=== PATIENT | female | born 1965 | race Caucasian/White ===

== ENCOUNTER → 2017-03-28 06:00 | Emergency (ER) | payer OTHER ==
[~2017-03-28 06:00] MED LIST: clonazePAM TAB(*) 0.5 MG ONE; clonazePAM TAB(*) 1 MG PO ONE
[2017-03-28 08:04] VITALS: BP 112/74
--- NOTE | 2017-03-28 08:25 | ED ---
Crescencio George Thomas, scribed for Ankush Page MD on 03/28/17 at 0721 . Psychiatric Complaint - HPI Summary HPI Summary: The pt is a 51 y/o F presenting to the ED c/o withdrawal symptoms that began two days ago and seeking extended-release Klonopin in order to avoid withdrawal. She was on Ativan 6mg for years and she has been trying to get off of it for the last 8-9 months. She is now on Effexor, which she says has improved her mental health considerably. Yesterday, she took Klonopin 2mg extended release, which improved her symptoms. She is seeking temporary relief from her withdrawal symptoms. She is following up with Dr. Coto and her next scheduled appointment is in a month. She is tearful in the examination room. Pt additionally c/o diarrhea, shakiness, chills, insomnia, elevated BP (to 150s/ 110s). Pt denies SI, CP, SOB, N/V. She is 27 years in recovery from alcoholism. - History Of Current Complaint Chief Complaint: EDGeneral Time Seen by Provider: 03/28/17 07:09 Hx Obtained From: Patient Hx Last Menstrual Period: 02/04/14 Onset/Duration: Lasting Days - withdrawal symptoms began two days ago, Still Present Timing: Constant Severity Currently: Moderate Character: Anxious Aggravating Factor(s): Nothing Alleviating Factor(s): Other - extended release Klonopin Associated Signs And Symptoms: Positive: Negative Related History: Positive For: Drug Abuse Counseling Has Suicidal: Denies: Thoughts Ingestion History: Type/Name Of Drug - Hx of Benzodiazepine abuse - Allergies/Home Medications Allergies/Adverse Reactions: Allergies Allergy/AdvReac Type Severity Reaction Status Date / Time No Known Allergies Allergy Verified 03/28/17 06:07 PMH/Surg Hx/FS Hx/Imm Hx Previously Healthy: No Endocrine/Hematology History: Reports: Hx Thyroid Disease - recent labs reveal hypothyroid - no medications as of yet Denies: Hx Anticoagulant Therapy, Hx Blood Disorders, Hx Diabetes Cardiovascular History: Denies: Hx Hypertension, Hx Pacemaker/ICD Respiratory History: Denies: Hx Asthma, Hx Chronic Obstructive Pulmonary Disease (COPD) GI History: Denies: Hx Ulcer Sensory History: Denies: Hx Hearing Aid Psychiatric History: Reports: Hx Anxiety Denies: Hx Panic Disorder - Surgical History Surgery Procedure, Year, and Place: d+c jul,cauterization september, d+c february ( polyps) bx benign. tonsils and appy as child, UFE PROCEDURE IN [place] [address] COBB Infectious Disease History: No Infectious Disease History: Denies: Hx Clostridium Difficile, Hx Hepatitis, Hx Human Immunodeficiency Virus (HIV), Hx of Known/Suspected MRSA, Hx Shingles, Hx Tuberculosis, Traveled Outside the [place] in Last 30 Days - Family History Known Family History: Positive: Other - thyroid dz, menorrhagia requiring TAWANDA - Social History Alcohol Use: None Alcohol Amount: alcoholism 27 yeras in recovery Hx Substance Use: Yes Substance Use Type: Reports: Prescribed Substance Use Comment - Amount & Last Used: ativan Hx Tobacco Use: No Smoking Status (MU): Never Smoked Tobacco Review of Systems Positive: Chills. Negative: Fever Positive: Other - POS: elevated BP. Negative: Chest Pain Negative: Shortness Of Breath Positive: Diarrhea. Negative: Vomiting, Nausea Neurological: Other - POS: withdrawal symptoms, shakiness, insomnia Negative: Other - NEG: SI All Other Systems Reviewed And Are Negative: Yes Physical Exam - Summary Physical Exam Summary: The patient is well-nourished in no acute distress and in no acute pain. The skin is warm and dry and skin color reflects adequate perfusion. HEENT: ~The head is normocephalic and atraumatic. The pupils are equal and reactive. The conjunctivae are clear and without drainage. ~Nares are patent and without drainage. ~Mouth reveals moist mucous membranes and the throat is without erythema and exudate. ~The external ears are intact. Neck is supple with full range of motion and non-tender. There are no carotid bruits. ~There is no neck vein distension. Respiratory: Chest is non-tender. ~Lungs are clear to auscultation and breath sounds are symmetrical and equal. Cardiovascular: Heart is regular rate and rhythm. ~There is no murmur or rub auscultated. ~~There is no peripheral edema and pulses are symmetrical and equal. Abdomen: The abdomen is soft and non-tender. ~There are normal bowel sounds heard in all four quadrants and there is no organomegaly palpated. Musculoskeletal: There is no back pain noted. ~Extremities are non-tender with full range of motion. ~There is good capillary refill. ~There is no peripheral edema or calf tenderness elicited. Neurological: Patient is alert and oriented to person, place and time. ~The patient has symmetrical motor strength in all four extremities. ~Cranial nerves are grossly intact. Deep tendon reflexes are symmetrical and equal in all four extremities. Psychiatric: She is tearful and anxious in the examination room. Triage Information Reviewed: Yes Vital Signs On Initial Exam: Initial Vitals Temp Pulse Resp BP Pulse Ox 98.2 F 70 22 147/98 98 03/28/17 06:02 03/28/17 06:02 03/28/17 06:02 03/28/17 06:02 03/28/17 06:02 Vital Signs Reviewed: Yes - [place] Coma Scale Coma Scale Total: 15 Diagnostics - Vital Signs Vital Signs Temp Pulse Resp BP Pulse Ox 03/28/17 06:35 52 99 03/28/17 06:32 113/72 03/28/17 06:05 98.2 F 68 20 147/98 98 03/28/17 06:02 98.2 F 70 22 147/98 98 - Laboratory Lab Statement: Any lab studies that have been ordered have been reviewed, and results considered in the medical decision making process. Course/Dx - Course Assessment/Plan: The pt is a 51 y/o F presenting to the ED c/o withdrawal symptoms that began two days ago and seeking extended-release Klonopin in order to avoid withdrawal. She was on Ativan 6mg for years and she has been trying to get off of it for the last 8-9 months. She is now on Effexor, which she says has improved her mental health considerably. Yesterday, she took Klonopin 2mg extended release, which improved her symptoms. She is seeking temporary relief from her withdrawal symptoms. She is following up with Dr. Coto and her next scheduled appointment is in a month. She is tearful in the examination room. Pt additionally c/o diarrhea, shakiness, chills, insomnia, elevated BP (to 150s/110s). Pt denies SI, CP, SOB, N/V. She is 27 years in recovery from alcoholism. The patient was given 2mg of Klonopin in the ED. She is diagnosed with benzodiazepine withdrawal and anxiety. She will be discharged home. She was instructed to call Dr. Coto for further instructions. Patient is agreeable to this plan. - Differential Dx/Clinical Impression Differential Diagnosis/HQI/PQRI: Positive: Anxiety, Depression Provider Diagnosis: Benzodiazepine withdrawal, Anxiety Discharge - Discharge Plan Condition: Stable Disposition: HOME Patient Education Materials: Benzodiazepine Abuse (ED), Anxiety (ED) Referrals: Gerhard Lyons MD [Primary Care Provider] - If Needed Nnamdi JUNIOR,Jesse Brower [Medical Doctor] - 1 Day Additional Instructions: Follow up with Dr. Coto regarding your treatment plan going forward. The documentation as recorded by the Crescencio silva Thomas accurately reflects the service I personally performed and the decisions made by , Ankush Page MD.
== END | disposition home or self-care (01) ==
LOC: ED 06:00
DX: F13.20 Sedative, hypnotic or anxiolytic dependence, uncomplicated (principal); R19.7 Diarrhea, unspecified
CPT/HCPCS: 99282; A9270-GY

== ENCOUNTER 2017-04-24 17:05 | Emergency (ER) | payer OTHER ==
[2017-04-24 18:09] VITALS: BP 146/86
== END 2017-04-24 19:26 | disposition left against medical advice (07) ==
LOC: ED 17:05
DX: R06.00 Dyspnea, unspecified (principal); Z53.21 Procedure and treatment not carried out due to patient leaving prior to being seen by health care provider

== ENCOUNTER 2017-09-22 11:47 | Emergency (ER) | payer OTHER ==
[2017-09-22] MEDS ORDERED: Metoclopramide IV* 5 MG/ML 2 ML VIAL IV ONE (12:14)
[2017-09-22 13:01] LABS: ABS Basophils 0.1 10^3/ul (0-0.2); ABS Eosinophils 0 10^3/ul (0-0.6); ABS Lymphocytes 2.1 10^3/ul (1.0-4.8); ABS Monocytes 0.5 10^3/ul (0-0.8); ABS Neutrophils 9.9 10^3/ul (1.5-7.7); ABS Nucleated RBC 0 10^3/ul; Eosinophil % 0.1 % (0-6); Hematocrit 46 % (35-47); Hemoglobin 15.5 g/dl (12.0-16.0); Lymphocyte % 16.3 % (25-47); Mean Corpuscular HGB Conc 34 g/dl (31-36); Mean Corpuscular Hemoglobin 27 pg (27-31); Mean Corpuscular Volume 79 fL (80-97); Mean Platelet Volume 8 um3 (7.4-10.4); Nucleated Red Blood Cells % 0.2; Platelet Count 333 10^3/ul (150-450); Red Blood Count 5.79 10^6/ul (4.0-5.4); Red Cell Distribution Width 14 % (10.5-15); White Blood Count 12.6 10^3/ul (3.5-10.8)
[2017-09-22] MEDS: NS 0.9% 1000 ML* 2,000 ML IV ONE ×2 (13:24→13:25)
--- NOTE | 2017-09-22 13:41 | RAD ---
Indication: Nausea and vomiting. Flat and upright views of the abdomen demonstrates no free air. No dilated loops of bowel are noted. The colon is filled with stool. IMPRESSION: No free air or obstruction is identified.
[2017-09-22 15:05] LABS: Urine Appearance Clear; Urine Blood 2+ (Negative); Urine Color Straw; Urine Ketones Trace (Negative); Urine Protein Negative (Negative); Urine Specific Gravity 1.002 (1.010-1.030); Urine Urobilinogen Negative (Negative)
[2017-09-22 15:39] VITALS: BP 144/100
--- NOTE | 2017-09-22 17:39 | ED ---
Dane George Nilda, scribed for César Camp MD on 09/22/17 at 1204 . Complex/Multi-Sys Presentation - HPI Summary HPI Summary: This patient is a 51 year old F presenting to [facility] accompanied by family with a chief complaint of constant withdrawal symptoms from being off Ativan for 2-3 days. The patient rates the pain 0/10 in severity. Symptoms aggravated by recent stressor (current legal hemphill in filing for malpractice regarding trauma due to Ativan dependence) and alleviated by nothing. Patient reports chills, N/V with spotting blood, tremors, dizziness (room-spinning), and feeling flushed. Patient states she has been on Ativan for the past 4 years and has been trying to get off the medication for years. She states she ran out of Ativan prescription 2-3 days ago and threw away the bottle so she is unsure when prescription was supposed to be refilled. - History Of Current Complaint Time Seen by Provider: 09/22/17 11:54 Hx Obtained From: Patient Onset/Duration: Sudden Onset, Lasting Days, Still Present Timing: Constant Location: Negative Aggravating Factor(s): recent stress, no Ativan for 2-3 days Alleviating Factor(s): nothing Associated Signs And Symptoms: Positive: Other - chills, N/V with spotting blood , tremors, dizziness (room-spinning), and feeling flushed. Related History: Other - ran out of Ativan 2-3 days ago, Hx Ativan dependence 4 years. - Allergies/Home Medications Allergies/Adverse Reactions: Allergies Allergy/AdvReac Type Severity Reaction Status Date / Time No Known Allergies Allergy Verified 09/22/17 12:11 PMH/Surg Hx/FS Hx/Imm Hx Endocrine/Hematology History: Reports: Hx Thyroid Disease - recent labs reveal hypothyroid - no medications as of yet Denies: Hx Anticoagulant Therapy, Hx Blood Disorders, Hx Diabetes Cardiovascular History: Denies: Hx Hypertension, Hx Pacemaker/ICD Respiratory History: Denies: Hx Asthma, Hx Chronic Obstructive Pulmonary Disease (COPD) GI History: Denies: Hx Ulcer Sensory History: Denies: Hx Hearing Aid Psychiatric History: Reports: Hx Anxiety Denies: Hx Panic Disorder - Surgical History Surgery Procedure, Year, and Place: d+c jul,cauterization september, d+c february ( polyps) bx benign. tonsils and appy as child, UFE PROCEDURE IN [place] [address] COBB Infectious Disease History: Denies: Hx Clostridium Difficile, Hx Hepatitis, Hx Human Immunodeficiency Virus (HIV), Hx of Known/Suspected MRSA, Hx Shingles, Hx Tuberculosis - Family History Known Family History: Positive: Other - thyroid dz, menorrhagia requiring TAWANDA - Social History Alcohol Use: None Alcohol Amount: alcoholism 27 yeras in recovery Hx Substance Use: Yes Substance Use Type: Reports: Prescribed Substance Use Comment - Amount & Last Used: ativan Hx Tobacco Use: No Smoking Status (MU): Never Smoked Tobacco Review of Systems Positive: Chills, Other - tremors (resolved) Positive: Vomiting - with spotting blood, Nausea Positive: Other - feeling flushed Neurological: Other - dizziness (room-spinning) Positive: Anxious - withdrawal symptoms from Ativan and recent stressors. All Other Systems Reviewed And Are Negative: Yes Physical Exam - Summary Physical Exam Summary: VITAL SIGNS: Reviewed. GENERAL: Patient is a well-developed and nourished female who is lying comfortable in the stretcher. Patient is not in any acute respiratory distress. HEAD AND FACE: No signs of trauma. No ecchymosis, hematomas or skull depressions. No sinus tenderness. EYES: PERRLA, EOMI x 2, No injected conjunctiva, no nystagmus. EARS: Hearing grossly intact. Ear canals and tympanic membranes are within normal limits. MOUTH: Oropharynx within normal limits. NECK: Supple, trachea is midline, no adenopathy, no JVD, no carotid bruit, no c- spine tenderness, neck with full ROM. CHEST: Symmetric, no tenderness at palpation LUNGS: Clear to auscultation bilaterally. No wheezing or crackles. CVS: Regular rate and rhythm, S1 and S2 present, no murmurs or gallops appreciated. ABDOMEN: Soft, non-tender. No signs of distention. No rebound no guarding, and no masses palpated. Bowel sounds are normal. EXTREMITIES: FROM in all major joints, no edema, no cyanosis or clubbing. NEURO: Alert and oriented x 3. No acute neurological deficits. Speech is normal and follows commands. SKIN: Dry and warm Triage Information Reviewed: Yes Vital Signs On Initial Exam: Initial Vitals Temp Pulse Resp BP Pulse Ox 98.1 F 74 16 168/79 100 09/22/17 11:58 09/22/17 11:58 09/22/17 11:58 09/22/17 11:58 09/22/17 11:58 Vital Signs Reviewed: Yes Diagnostics - Vital Signs Vital Signs Temp Pulse Resp BP Pulse Ox 09/22/17 15:40 97.9 F 65 16 144/100 98 09/22/17 15:35 60 99 09/22/17 15:33 144/100 09/22/17 14:46 28 09/22/17 14:33 145/131 09/22/17 14:30 54 98 09/22/17 14:00 57 26 136/69 96 09/22/17 13:30 62 23 124/82 98 09/22/17 13:08 23 09/22/17 12:29 59 15 100 09/22/17 12:11 78 168/79 99 09/22/17 12:09 81 160/136 99 09/22/17 12:04 72 99 09/22/17 11:58 98.1 F 74 16 168/79 100 - Laboratory Lab Results: Lab Results 09/22/17 09/22/17 09/22/17 Range/Units 12:46 12:46 14:26 WBC 12.6 H (3.5-10.8) 10^3/ul RBC 5.79 H (4.0-5.4) 10^6/ul Hgb 15.5 (12.0-16.0) g/dl Hct 46 (35-47) % MCV 79 L (80-97) fL MCH 27 (27-31) pg MCHC 34 (31-36) g/dl RDW 14 (10.5-15) % Plt Count 333 (150-450) 10^3/ul MPV 8 (7.4-10.4) um3 Neut % (Auto) 78.6 (38-83) % Lymph % (Auto) 16.3 L (25-47) % [place] % (Auto) 4.3 (0-7) % Eos % (Auto) 0.1 (0-6) % Baso % (Auto) 0.7 (0-2) % Absolute Neuts (auto) 9.9 H (1.5-7.7) 10^3/ul Absolute Lymphs (auto) 2.1 (1.0-4.8) 10^3/ul Absolute Monos (auto) 0.5 (0-0.8) 10^3/ul Absolute Eos (auto) 0 (0-0.6) 10^3/ul Absolute Basos (auto) 0.1 (0-0.2) 10^3/ul Absolute Nucleated RBC 0 10^3/ul Nucleated RBC % 0.2 Sodium 132 L (133-145) mmol/L Potassium 3.6 (3.5-5.0) mmol/L Chloride 98 L (101-111) mmol/L Carbon Dioxide 25 (22-32) mmol/L Anion Gap 9 (2-11) mmol/L BUN 10 (6-24) mg/dL Creatinine 0.54 (0.51-0.95) mg/dL Est GFR ( Amer) 154.3 (>60) Est GFR (Non-Af Amer) 120.0 (>60) BUN/Creatinine Ratio 18.5 (8-20) Glucose 120 H (70-100) mg/dL Calcium 10.2 (8.6-10.3) mg/dL Magnesium 1.9 (1.9-2.7) mg/dL Total Bilirubin 0.60 (0.2-1.0) mg/dL AST 16 (13-39) U/L ALT 19 (7-52) U/L Alkaline Phosphatase 104 (34-104) U/L Total Creatine Kinase 63 (10-223) U/L C-Reactive Protein 20.52 H (< 5.00) mg/L Total Protein 7.8 (6.4-8.9) g/dL Albumin 4.3 (3.2-5.2) g/dL Globulin 3.5 (2-4) g/dL Albumin/Globulin Ratio 1.2 (1-3) Lipase 20 (11.0-82.0) U/L Urine Color Straw Urine Appearance Clear Urine pH 6.0 (5-9) Ur Specific [place] 1.002 L (1.010-1.030) Urine Protein Negative (Negative) Urine Ketones Trace A (Negative) Urine Blood 2+ A (Negative) Urine Nitrate Negative (Negative) Urine Bilirubin Negative (Negative) Urine Urobilinogen Negative (Negative) Ur Leukocyte Esterase Negative (Negative) Urine WBC (Auto) Trace(0-5/hpf) (Absent) Urine RBC (Auto) Trace(0-2/hpf) (Absent) Ur Squamous Epith Cells Present A (Absent) Urine Bacteria Absent (Absent) Urine Glucose Negative (Negative) Result Diagrams: 09/22/17 12:46 09/22/17 12:46 Lab Statement: Any lab studies that have been ordered have been reviewed, and results considered in the medical decision making process. - EKG 1235 Cardiac Rate: Bradycardia EKG Rhythm: Sinus Bradycardia - 55 bpm EKG Interpretation: no ST elevation EKG Comparison: No Significant Change - from EKG on 02/07/17. Re-Evaluation - Re-Evaluation First Eval Re-Evaluation Time: 14:58 Comment: Reviewed labs and EKG with patient as well as plan to D/C. Patient feels better. She's agreeable to D/C. Complex Multi-Symp Course/Dx Assessment/Plan: This patient is a 51 year old F presenting to [facility] accompanied by family with a chief complaint of constant withdrawal symptoms from being off Ativan for 2-3 days. The patient rates the pain 0/10 in severity. Symptoms aggravated by recent stressor (current legal hemphill in filing for malpractice regarding trauma due to Ativan dependence) and alleviated by nothing. Patient reports chills, N/V with spotting blood, tremors , dizziness (room-spinning), and feeling flushed. Patient states she has been on Ativan for the past 4 years and has been trying to get off the medication for years. She states she ran out of Ativan prescription 2-3 days ago and threw away the bottle so she is unsure when prescription was supposed to be refilled. In the ED course an IV access was obtained. Patient was placed in a cardiac rehabilitation program director. Patient was started with IV fluids. She was given Reglan for nausea and vomiting. Labs without any significant abnormality except for WBC 12.6, CRP 20.52, UA negative for UTI. EKG shows a NSR w/o ST elevations. Abdominal X ray impression: No acute pathology. After medications she is feeling better. I gave a prescription for Ativan 0.5 (6 tabs) until she follows with Dr. Clark (psychiatry). I discussed all the findings and test results with the patient. Patient was instructed to return to the emergency room immediately if any of the symptoms return or worsens. Plan of care was discussed with the patient and understands and agrees. All questions were answered at patient satisfaction. There were no further complaints or concerns. Lung exam before discharge: CTA B/L. Good air exchange. No wheezing or crackles heard. CVS: S1 and S2 present. No murmurs appreciated. Patient is alert and oriented x 3. Patient is hemodynamically stable. Patient will be discharged home with follow up PCP in the next 2-3 days - Diagnoses Provider Diagnoses: Anxiety, Benzodiazepine abuse Discharge - Discharge Plan Condition: Stable Disposition: HOME Prescriptions: LORazepam TAB(*) [Ativan 0.5 MG TAB (*)] 0.5 mg PO Q8H PRN #6 tab MDD 3 PRN Reason: Anxiety Patient Education Materials: Anxiety (ED) Referrals: Gerhard Lyons MD [Primary Care Provider] - 3 Days Additional Instructions: RETURN TO THE EMERGENCY DEPARTMENT FOR CHANGING OR WORSENING SYMPTOMS. The documentation as recorded by the Dane silva Nilda accurately reflects the service I personally performed and the decisions made by , César Camp MD.
--- NOTE | 2017-09-24 09:00 | PN ---
Progress Note - Progress Note Date of Service: 09/22/17 Note: 10-25,000 of e.coli grew on urine culture. had clear urinalysis and no symptoms. no treatment is required at this time due to insignificant amount of growth.
== END 2017-09-22 15:40 | disposition home or self-care (01) ==
LOC: ED 11:47
DX: F41.9 Anxiety disorder, unspecified (principal)
CPT/HCPCS: 36415; 74019; 80053; 81003; 81015; 82550; 83690; 83735; 85025; 86140; 87077; 87086; 87186; 93005; 96360; 96374; 99284; J2765

== ENCOUNTER 2018-01-23 16:57 | Emergency (ER) | payer OTHER ==
[2018-01-23] MEDS ORDERED: NS 0.9% 1000 ML* 2,000 ML IV ONE (17:53)
[2018-01-23 18:12] LABS: ABS Basophils 0.1 10^3/ul (0-0.2); ABS Eosinophils 0 10^3/ul (0-0.6); ABS Lymphocytes 2.3 10^3/ul (1.0-4.8); ABS Monocytes 0.8 10^3/ul (0-0.8); ABS Neutrophils 11.3 10^3/ul (1.5-7.7); ABS Nucleated RBC 0 10^3/ul; Eosinophil % 0.3 % (0-6); Hematocrit 42 % (35-47); Lymphocyte % 15.6 % (25-47); Mean Corpuscular HGB Conc 34 g/dl (31-36); Mean Corpuscular Hemoglobin 26 pg (27-31); Mean Corpuscular Volume 78 fL (80-97); Mean Platelet Volume 7.4 um3 (7.4-10.4); Nucleated Red Blood Cells % 0.1; Platelet Count 370 10^3/ul (150-450); Red Blood Count 5.34 10^6/ul (4.00-5.40); Red Cell Distribution Width 15 % (10.5-15); White Blood Count 14.5 10^3/ul (3.5-10.8)
[2018-01-23 18:20] LABS: INR 1.06 (0.77-1.02)
--- NOTE | 2018-01-23 18:22 | ED ---
Psychiatric Complaint - HPI Summary HPI Summary: This is romanibsam Garcia documenting for attending Shadi Jackson MD. This patient is a 52 year old F BLS by [facility] accompanied by a male with a chief complaint of withdrawal from Ativan that she stopped taking 9 days ago. Pt was previously taking 2mg of Ativan 3 times a day, but she decided to stop with the support of her friends. Patient reports involuntary twitching/ jerking, inability to feel her body, and memory loss. PMHx of depression and SI. FHx of alcoholism. Pt is worried she will have a seizure. Pt mentioned at the end of the conversation that she couldnt remember anything she said to Dr. Jackson. - History Of Current Complaint Chief Complaint: EDGeneral Time Seen by Provider: 01/23/18 17:42 Hx Obtained From: Patient Hx Last Menstrual Period: 02/04/14 Onset/Duration: Sudden Onset, Lasting Days - 9 days Timing: Constant Severity Initially: Moderate Severity Currently: Moderate Character: Anxious Associated Signs And Symptoms: Negative: Hostile - Allergies/Home Medications Allergies/Adverse Reactions: Allergies Allergy/AdvReac Type Severity Reaction Status Date / Time No Known Allergies Allergy Verified 09/22/17 12:11 PMH/Surg Hx/FS Hx/Imm Hx Endocrine/Hematology History: Reports: Hx Thyroid Disease - recent labs reveal hypothyroid - no medications as of yet Denies: Hx Anticoagulant Therapy, Hx Blood Disorders, Hx Diabetes Cardiovascular History: Denies: Hx Hypertension, Hx Pacemaker/ICD Respiratory History: Denies: Hx Asthma, Hx Chronic Obstructive Pulmonary Disease (COPD) GI History: Denies: Hx Ulcer Sensory History: Denies: Hx Hearing Aid EENT History: Denies: Hx Deafness Psychiatric History: Reports: Hx Anxiety Denies: Hx Panic Disorder - Surgical History Surgery Procedure, Year, and Place: d+c jul,cauterization september, d+c february ( polyps) bx benign. tonsils and appy as child, UFE PROCEDURE IN [place] [address] COBB Infectious Disease History: No Infectious Disease History: Denies: Hx Clostridium Difficile, Hx Hepatitis, Hx Human Immunodeficiency Virus (HIV), Hx of Known/Suspected MRSA, Hx Shingles, Hx Tuberculosis, Traveled Outside the [place] in Last 30 Days - Family History Known Family History: Positive: Other - thyroid dz, menorrhagia requiring TAWANDA - Social History Alcohol Use: None Alcohol Amount: alcoholism 27 yeras in recovery Hx Substance Use: Yes Substance Use Type: Reports: Prescribed Substance Use Comment - Amount & Last Used: ativan Hx Tobacco Use: No Smoking Status (MU): Never Smoked Tobacco Review of Systems Positive: Other Neurological: Other - short term memory loss, twitching Positive: Numbness - "can't feel my body" Positive: Anxious All Other Systems Reviewed And Are Negative: Yes Physical Exam - Summary Physical Exam Summary: General: well-appearing, no pain distress. Anxious. Skin: warm, color reflects adequate perfusion, dry Head: normal Eyes: EOMI, RENU ENT: normal Neck: supple, nontender Respiratory: CTA, breath sounds present Cardiovascular: RRR Abdomen: soft, nontender Bowel: present Musculoskeletal: normal, strength/ROM intact Neurological: sensory/motor intact, A&O x3 Psychological: affect/mood appropriate Triage Information Reviewed: Yes Vital Signs On Initial Exam: Initial Vitals Temp Pulse Resp BP Pulse Ox 97.6 F 90 16 159/80 99 01/23/18 17:00 01/23/18 17:00 01/23/18 17:00 01/23/18 17:00 01/23/18 17:00 Vital Signs Reviewed: Yes Diagnostics - Vital Signs Vital Signs Temp Pulse Resp BP Pulse Ox 01/23/18 17:00 97.6 F 90 16 159/80 99 - Laboratory Lab Results: Lab Results 01/23/18 Range/Units 18:01 WBC 14.5 H (3.5-10.8) 10^3/ul RBC 5.34 (4.00-5.40) 10^6/ul Hgb 14.0 (12.0-16.0) g/dl Hct 42 (35-47) % MCV 78 L (80-97) fL MCH 26 L (27-31) pg MCHC 34 (31-36) g/dl RDW 15 (10.5-15) % Plt Count 370 (150-450) 10^3/ul MPV 7.4 (7.4-10.4) um3 Neut % (Auto) 78.0 (38-83) % Lymph % (Auto) 15.6 L (25-47) % [place] % (Auto) 5.3 (0-7) % Eos % (Auto) 0.3 (0-6) % Baso % (Auto) 0.8 (0-2) % Absolute Neuts (auto) 11.3 H (1.5-7.7) 10^3/ul Absolute Lymphs (auto) 2.3 (1.0-4.8) 10^3/ul Absolute Monos (auto) 0.8 (0-0.8) 10^3/ul Absolute Eos (auto) 0 (0-0.6) 10^3/ul Absolute Basos (auto) 0.1 (0-0.2) 10^3/ul Absolute Nucleated RBC 0 10^3/ul Nucleated RBC % 0.1 Result Diagrams: 01/23/18 18:01 01/23/18 18:01 Lab Statement: Any lab studies that have been ordered have been reviewed, and results considered in the medical decision making process. - EKG 18:17 Cardiac Rate: NL - 63 bpm EKG Rhythm: Sinus Rhythm Ectopy: None EKG Interpretation: Borderline T wave abnormalities in the anterior leads. Similar to 09/22/2017 Re-Evaluation - Re-Evaluation First Eval Re-Evaluation Time: 19:00 Change: Improved Comment: Pt is feeling better. Course/Dx - Course Course Of Treatment: IMPROVED IN ED. DISCUSSED RESULTS WITH THE PATIENT AND . F/U PMD; RETURN TO ED IF WORSE. - Differential Dx/Clinical Impression Provider Diagnosis: Benzodiazepine withdrawal, Constipation Discharge - Sign-Out/Discharge Documenting (check all that apply): Patient Departure - Discharge Plan Condition: Stable Disposition: HOME Patient Education Materials: Constipation (ED) Referrals: Gerhard Lyons MD [Primary Care Provider] - Additional Instructions: FOLLOW UP WITH YOUR DOCTOR. RETURN TO THE EMERGENCY DEPARTMENT FOR ANY WORSENING OF YOUR CONDITION OR QUESTIONS OR CONCERNS. - Billing Disposition and Condition Condition: STABLE Disposition: Home
[2018-01-23 18:29] LABS: EGFR Non-African American 67.1 (>60)
[2018-01-23 20:25] LABS: Urine Appearance Turbid; Urine Blood 1+ (Negative); Urine Color Amber; Urine Ketones Trace (Negative); Urine Protein 1+(30 mg/dL) (Negative); Urine Red Blood Cell 1+(3-5/hpf) (Absent); Urine Urobilinogen Negative (Negative); Urine White Blood Cell Trace(0-5/hpf) (Absent)
[2018-01-23] MEDS ORDERED: Magnesium CITRATE* 300 ML BTL PO ONE (21:13)
[2018-01-23 21:41] VITALS: BP 138/80
== END 2018-01-23 21:40 | disposition home or self-care (01) ==
LOC: ED 16:57
DX: F13.239 Sedative, hypnotic or anxiolytic dependence with withdrawal, unspecified (principal); T42.4X5A Adverse effect of benzodiazepines, initial encounter; Y92.9 Unspecified place or not applicable; K59.00 Constipation, unspecified; Z86.59 Personal history of other mental and behavioral disorders
CPT/HCPCS: 36415; 80053; 80307; 80320; 80329; 81003; 81015; 82140; 82550; 82553; 83605; 83735; 83880; 84443; 84484; 85025; 85610; 85730; 86140; 87086; 93005; 96360; 99284; A9270-GY; G0480

== ENCOUNTER 2018-03-15 09:46 | Emergency (ER) | payer OTHER ==
[2018-03-15 09:58] VITALS: BP 121/81
--- NOTE | 2018-03-15 10:00 | UC ---
Throat Pain/Nasal Sean HPI - HPI Summary HPI Summary: 52 yo female presents with sinus pain/pressure/congestion getting progressively worse over the last 7 days. She says that she has had many sinus infections in the past and this feels similar. She does get seasonal allergies and has been taking OTC zyrtec, mucinex, and using a nasal spray with no relief. She also has a slight sore throat and dry cough. Denies fever, chills, SOB, chest pain, or rash. - History of Current Complaint Chief Complaint: UCRespiratory Stated Complaint: SINUS COMPLAINT Time Seen by Provider: 03/15/18 10:00 Hx Obtained From: Patient Hx Last Menstrual Period: 03/03/28 Onset/Duration: Gradual Onset Severity: Moderate Pain Intensity: 6 Pain Scale Used: 0-10 Numeric Cough: Nonproductive - Allergies/Home Medications Allergies/Adverse Reactions: Allergies Allergy/AdvReac Type Severity Reaction Status Date / Time No Known Allergies Allergy Verified 03/15/18 09:58 Home Medications: Home Medications Metformin ER (NF) 03/15/18 [History] Venlafaxine EXT RELEASE CAP(NF [Effexor Xr CAP 225 MG (NF)] 225 mg PO DAILY 12/25 [History Confirmed 03/15/18] amLODIPine TAB* [Norvasc 5 mg TAB*] 5 mg PO DAILY 03/15/18 [History Confirmed ] PMH/Surg Hx/FS Hx/Imm Hx Endocrine History: Diabetes Cardiovascular History: Hypertension Psychological History: Anxiety, Depression Other History Of: Negative For: Anticoagulant Therapy - Surgical History Surgical History: None Surgery Procedure, Year, and Place: d+c jul,cauterization september, d+c february ( polyps) bx benign. tonsils and appy as child, UFE PROCEDURE IN [place] [address] COBB - Family History Known Family History: Positive: Other - thyroid dz, menorrhagia requiring TAWANDA - Social History Lives: With Family Alcohol Use: None Alcohol Amount: alcoholism 27 yeras in recovery Substance Use Type: Prescribed Substance Use Comment - Amount & Last Used: ativan Smoking Status (MU): Never Smoked Tobacco - Immunization History Most Recent Influenza Vaccination: 2016 Most Recent Tetanus Shot: unsure Most Recent Pneumonia Vaccination: never Review of Systems Constitutional: Negative Skin: Negative Eyes: Negative ENT: Nasal Discharge, Sinus Congestion, Sinus Pain/Tenderness Respiratory: Negative Cardiovascular: Negative Gastrointestinal: Negative Neurovascular: Negative Neurological: Negative Psychological: Negative All Other Systems Reviewed And Are Negative: Yes Physical Exam - Summary Physical Exam Summary: GENERAL: NAD. WDWN. No pain distress. SKIN: No rashes, sores, lesions, or open wounds. HEENT: Head: AT/NC Eyes: EOM intact. Conjunctiva clear without inflammation or discharge. Ears: Hearing grossly normal. TMs intact, no bulging, erythema, or edema. Nose: Nasal mucosa mildly swollen and erythematous with yellow/ clear discharge. TTP maxillary and frontal sinus. Throat: Posterior oropharynx without exudates, erythema, or tonsillar enlargement. Uvula midline. NECK: Supple. Nontender. No lymphadenopathy. CHEST: CTAB. No r/r/w. No accessory muscle use. Breathing comfortably and in no distress. CV: RRR. Without m/r/g. Pulses intact. NEURO: Alert. CN II-XII grossly intact. PSYCH: Age appropriate behavior. Triage Information Reviewed: Yes Vital Signs: Initial Vital Signs Temp 98 F 03/15/18 09:55 Pulse 82 03/15/18 09:55 Resp 18 03/15/18 09:55 BP 121/81 03/15/18 09:55 Pulse Ox 99 03/15/18 09:55 Vital Signs Reviewed: Yes Throat Pain/Nasal Course/Dx - Course Course Of Treatment: Sinusitis - Differential Dx/Diagnosis Provider Diagnoses: Sinusitis Discharge - Sign-Out/Discharge Documenting (check all that apply): Patient Departure All imaging exams completed and their final reports reviewed: No Studies - Discharge Plan Condition: Stable Disposition: HOME Prescriptions: Amoxicillin/Clavulanate TAB* [Augmentin TAB 875*] 875 mg PO BID #20 tab guaiFENesin [Mucinex] 600 mg PO BID #20 tab.er.12h Patient Education Materials: Sinusitis (ED) Referrals: César Avery MD [Primary Care Provider] - Additional Instructions: If you develop a fever, shortness of breath, chest pain, new or worsening symptoms - please call your PCP or go to the ED. - Billing Disposition and Condition Condition: STABLE Disposition: Home
== END 2018-03-15 10:12 | disposition home or self-care (01) ==
LOC: UCEAST 09:46
DX: J32.9 Chronic sinusitis, unspecified (principal); E11.9 Type 2 diabetes mellitus without complications; Z79.84 Long term (current) use of oral hypoglycemic drugs; I10 Essential (primary) hypertension; F41.9 Anxiety disorder, unspecified; F32.9 Major depressive disorder, single episode, unspecified
CPT/HCPCS: 99212; G0463

== ENCOUNTER 2018-03-16 11:04 | Emergency (ER) | payer OTHER ==
--- NOTE | 2018-03-16 13:35 | UC ---
Dizzy HPI HPI Summary: Patient is a 52-year-old female that is currently on day #1 of antibiotics for a sinus infection. Resents here because she feels weak and dizzy. She has had nausea and vomiting. She had one episode of vomiting last night. She vomited here in the [facility]. She has no fever or chills. She has had greater than one week history of sinus pressure and pain as well as postnasal drip. She denies any diarrhea. She has been able to tolerate her antibiotics. - History Of Current Complaint Chief Complaint: UCGeneralIllness Stated Complaint: SINUS COMPLAINT Hx Obtained From: Patient Hx Last Menstrual Period: 03/03/28 Onset/Duration: Gradual Onset, Lasting Days Timing: Constant Severity Initially: Mild Severity Currently: Moderate Pain Intensity: 7 - facial pressure Pain Scale Used: 0-10 Numeric Character: Lightheaded, Dizzy Aggravating Factor(s): Nothing Associated Signs And Symptoms: Positive: Nausea, Vomiting - Allergies/Home Medications Allergies/Adverse Reactions: Allergies Allergy/AdvReac Type Severity Reaction Status Date / Time No Known Allergies Allergy Verified 03/16/18 12:50 PMH/Surg Hx/FS Hx/Imm Hx Previously Healthy: Yes Other History Of: Negative For: Anticoagulant Therapy - Surgical History Surgical History: None Surgery Procedure, Year, and Place: d+c jul,cauterization september, d+c february ( polyps) bx benign. tonsils and appy as child, UFE PROCEDURE IN [place] [address] COBB - Family History Known Family History: Positive: Other - thyroid dz, menorrhagia requiring TAWANDA - Social History Alcohol Use: None Alcohol Amount: alcoholism 27 yeras in recovery Substance Use Type: Prescribed Substance Use Comment - Amount & Last Used: ativan Smoking Status (MU): Never Smoked Tobacco - Immunization History Most Recent Influenza Vaccination: 2016 Most Recent Tetanus Shot: unsure Most Recent Pneumonia Vaccination: never Review of Systems Constitutional: Fatigue Skin: Negative Eyes: Negative ENT: Nasal Discharge, Sinus Congestion, Sinus Pain/Tenderness Respiratory: Negative Cardiovascular: Negative Gastrointestinal: Vomiting, Nausea Genitourinary: Negative Motor: Negative Neurovascular: Negative Musculoskeletal: Negative Neurological: Negative Psychological: Negative Is Patient Immunocompromised?: No All Other Systems Reviewed And Are Negative: Yes Physical Exam Triage Information Reviewed: Yes Appearance: Well-Appearing, No Pain Distress, Well-Nourished Vital Signs: Initial Vital Signs Temp 97.0 F 03/16/18 12:45 Pulse 81 03/16/18 12:45 Resp 19 03/16/18 12:45 BP 140/91 03/16/18 12:45 Pulse Ox 100 03/16/18 12:45 Vital Signs Reviewed: Yes Eyes: Positive: Conjunctiva Clear ENT: Positive: Hearing grossly normal, Pharyngeal erythema, Nasal congestion, Nasal drainage, TMs normal, Sinus tenderness, Uvula midline. Negative: Tonsillar swelling, Tonsillar exudate, Trismus, Muffled voice, Hoarse voice, Dental tenderness Neck: Positive: Supple, Nontender, No Lymphadenopathy Respiratory: Positive: Lungs clear, Normal breath sounds, No respiratory distress, No accessory muscle use Cardiovascular: Positive: RRR, No Murmur Abdomen Description: Positive: Nontender Musculoskeletal: Positive: ROM Intact, No Edema Neurological: Positive: Alert Psychological Exam: Normal Skin Exam: Normal Re-Evaluation - Re-Evaluation First Eval Re-Evaluation Time: 14:56 Change: Improved Dizzy Course/Dx - Differential Dx/Diagnosis Provider Diagnoses: acute sinusitis. vomiting Discharge - Sign-Out/Discharge Documenting (check all that apply): Patient Departure All imaging exams completed and their final reports reviewed: No Studies - Discharge Plan Condition: Stable Disposition: HOME Prescriptions: Benzonatate CAP* [Tessalon CAP*] 100 - 200 mg PO TID PRN #28 cap PRN Reason: Cough Ondansetron TAB* [Zofran Tab*] 4 mg PO Q6H PRN #10 tab PRN Reason: Nausea Patient Education Materials: Sinusitis (ED) Referrals: César Avery MD [Primary Care Provider] - As Soon As Possible Additional Instructions: see your MD next week as planned - Billing Disposition and Condition Condition: STABLE Disposition: Home
[2018-03-16] MEDS ORDERED: Ondansetron INJ* 2 MG/ML VIAL IV ONE (13:37)
[2018-03-16] MEDS ORDERED: NS 0.9% 1000 ML* 1,000 ML BOLUS ONE (13:37)
[2018-03-16 15:42] VITALS: BP 126/48
== END 2018-03-16 15:12 | disposition home or self-care (01) ==
LOC: UCEAST 11:04
DX: J01.90 Acute sinusitis, unspecified (principal); R11.2 Nausea with vomiting, unspecified
CPT/HCPCS: 96361; 96374; 99212; G0463; J2405

== ENCOUNTER 2019-01-17 15:50 | Emergency (ER) | payer OTHER ==
--- OUTSIDE RECORDS SUMMARY | 2019-01-17 15:56 | XMS REPORT | Continuity of Care Document ---
:1965 External Reference #:[id number] Author Name PatriciaSunni silva Care Team Providers Name Role Phone César Avery III, MD Primary Care Physician Unavailable Payers Date Identification Numbers Payment Provider Subscriber Effective: Policy Number: [id number] Villal[employer] Kait Elizalde 2018 Medicaid PayID: [id number] [place] [id number] Problems Active Problems Provider Date Uterine leiomyoma Javi Egan M.D. Onset: 03/24/2016 Endometriosis of uterus Javi Egan M.D. Onset: 11/16/2016 Body mass index 30+ - obesity Joaquin Alves M.D.,FACP Onset: 04/19/2018 Hypothyroidism Joaquin Alves M.D.,FACP Onset: 04/19/2018 Major depressive disorder Joaquin Alves M.D.,FACP Onset: 04/19/2018 Family History Date Family Member(s) Observation Comments General Hypothyroidism General Heart Disease Father Alcoholism Father Cerebrovascular Accident (CVA) Father Depression Father Cirrhosis Mother Heart Disease Mother Coronary Artery Disease (CAD) 2 stents Mother Arthritis Mother Osteoporosis Mother Thyroid Disease Mother Cerebrovascular Accident (CVA) Mother Hypercholesterolemia Mother Hypertension Mother Breast Cancer Mother It Application Architect Hx Patient reports her mother had "heavy vaginal bleeding" before a hysterectomy at age 49 Social History Type Date Description Comments Sex Unknown Marital Status Lives With Occupation Currently Working IT consulting Tobacco Use Start: Unknown Never Smoked Cigarettes Smoking Status Reviewed: 12/26/18 Never Smoked Cigarettes ETOH Use Denies alcohol use Tobacco Use Start: Unknown Patient has never smoked Recreational Drug Use Denies Drug Use Exercise Type/Frequency Does not exercise Allergies, Adverse Reactions, Alerts Description No Known Drug Allergies Medications Active Medications SIG Qnty Indications Ordering Date Provider Acyclovir apply 15gm César Parry 12/26/2018 5% Ointment Darion Avery HM Cetirizine HCL 1 by mouth every 90tabs César Parry 12/26/2018 10mg day Darion Avery Tablets Levothyroxine Sodium take one tablet 90tabs César Parry 08/09/2018 by mouth every Darion Avery 75mcg Tablets morning on an empty stomach Ventolin HFA 2 puffs by mouth 8gm César Parry 06/26/2018 108(90Base) four times a day Darion Avery mcg/Act Aerosol as needed Vitamin D 1 po qd 120caps Joaquin North 05/07/2018 (Ergocalciferol) Darion Alves,FACP 2000Unit Capsules Wrist carpal tunnel 1units Joaquin North 04/19/2018 Splint/Elastic/Left/Me splint Darion Alves,FACP dium [facility] [place] Wrist for CTS 1units Joaquin North 04/19/2018 Splint/Elastic/Right/M Darion Alves,FACP edium [facility] [place] Adderall 2 tabs by mouth Unknown 30mg Tablets in am Venlafaxine HCL ER one daily Unknown 150mg Tablets ER 24HR Amlodipine Besylate 1 by mouth every 30tabs César Parry 5mg day Darion Avery Tablets Venlafaxine HCL 1 by mouth every Unknown 37.5mg day with 150mg Tablets tab Breo Ellipta 1 puff inhaled 1units César Parry daily Darion Avery 100-25mcg/Inh Aerosol History Medications Synthroid take one tablet 30tabs Joaquin Alves, 05/07/2018 - 75mcg Tablets by mouth nikita Orlando,FACP 08/09/2018 morning on an empty stomach Zovirax apply every 3 30gm César Avery, 03/21/2018 - 5% Ointment hours, max 6 M.D. 12/26/2018 times a day for 1 week max Norethindrone Acetate 3 tabs by mouth Unknown - 5mg bid 11/15/2016 Tablets Prozac 3 tabs by mouth Unknown - 20mg Capsules every day 11/15/2016 Ativan 1 tab Am, 2 tab Unknown - 2mg Tablets afternoon, 1 tab 01/07/2018 PM prn Bupropion HCL ER (XL) Gerhard Lyons MD - 300mg 11/15/2016 Tablets ER 24HR Bupropion HCL ER (XL) Take One Tablet Gerhard Lyons MD - 150mg By Mouth Every 03/20/2018 Tablets ER 24HR Day Am Synthroid 1 by mouth every Unknown - 50mcg Tablets day 05/07/2018 Metformin HCL 1 by mouth twice Unknown - 500mg Tablets a day 12/26/2018 Ibuprofen as needed Unknown - 200mg Capsules 12/26/2018 Tylenol 2 tablets every Unknown - 325mg Capsules 4 hours as 12/26/2018 needed for pain Adderall 1 by mouth in Unknown - 20mg Tablets ajit 12/26/2018 Zyrtec Allergy take one tablet 90caps César Avery, - 10mg by mouth in the M.D. 12/26/2018 Capsules evening Immunizations CPT Code Status Date Vaccine Lot # [id number] Given 04/19/2018 Influenza Virus Vaccine, Quadrivalent, Split, [id number] Preservative Free Vital Signs Date Vital Result Comment 12/26/2018 4:58pm Height 64 inches 5'4" Weight 257.00 lb Heart Rate 81 /min BP Systolic Sitting 137 mmHg BP Diastolic Sitting 75 mmHg O2 % BldC Oximetry 98 % BMI (Body Mass Index) 44.1 kg/m2 06/26/2018 4:06pm Height 64 inches 5'4" Weight 247.00 lb Heart Rate 86 /min BP Systolic Sitting 130 mmHg BP Diastolic Sitting 88 mmHg O2 % BldC Oximetry 98 % BMI (Body Mass Index) 42.4 kg/m2 06/21/2018 1:21pm Height 64 inches 5'4" Weight 244.00 lb Heart Rate 74 /min BP Systolic 110 mmHg BP Diastolic 72 mmHg O2 % BldC Oximetry 97 % BMI (Body Mass Index) 41.9 kg/m2 Last Menstrual Period [id number] 04/19/2018 2:15pm Height 64 inches 5'4" Weight 241.00 lb Heart Rate 95 /min BP Systolic Sitting 144 mmHg BP Diastolic Sitting 90 mmHg Body Temperature 96.0 F O2 % BldC Oximetry 96 % BMI (Body Mass Index) 41.4 kg/m2 03/21/2018 2:48pm Height 64 inches 5'4" Weight 231.00 lb Heart Rate 81 /min BP Systolic Sitting 122 mmHg BP Diastolic Sitting 90 mmHg O2 % BldC Oximetry 97 % BMI (Body Mass Index) 39.6 kg/m2 11/16/2016 1:39pm Height 64 inches 5'4" Weight 207.12 lb Heart Rate 82 /min BP Systolic Sitting 150 mmHg Lue reg cuff BP Diastolic Sitting 110 mmHg Lue reg cuff Respiratory Rate 16 /min BMI (Body Mass Index) 35.5 kg/m2 03/24/2016 1:31pm Height 64 inches 5'4" Weight 198.00 lb Heart Rate 104 /min BP Systolic Sitting 156 mmHg left arm, reg cuff BP Diastolic Sitting 92 mmHg left arm, reg cuff Respiratory Rate 20 /min BMI (Body Mass Index) 34.0 kg/m2 Results Test Date Facility Test Result H/L Range Note Laboratory test 06/28/2018 [facility] TSH 4.07 mcIU/mL N 0.34- 5.[address] ([place] [address] Stim Horm) [phone] Free T4 (Free Thyroxine) 0.64 ng/dL N 0.61-1.12 Laboratory test 06/21/2018 [facility] Cytology SEE RESULT [address] [place], [place] [id number] [phone] Laboratory test 05/01/2018 [facility] TSH (Thyroid 6.28 mcIU/mL High 0.34- finding [address] Stim Horm) 5.60 [place] [address] [phone] Free T4 (Free Thyroxine) 0.74 ng/dL N 0.61-1.12 Vitamin D Total 25(Oh) 12.0 ng/mL Low 20-50 Vitamin B12 1297 pg/mL High 180-914 2 Comp Metabolic Panel 05/01/2018 [facility] Sodium 138 mmol/L N 135-[address] [place] [address] [phone] Potassium 4.6 mmol/L N 3.5-5.0 Chloride 101 mmol/L N 101-111 Co2 Carbon Dioxide 29 mmol/L N 22-32 Anion Gap 8 mmol/L N 2-11 Glucose 95 mg/dL N 70-100 Blood Urea Nitrogen 17 mg/dL N 6-24 Creatinine 0.60 mg/dL N 0.51-0.95 BUN/Creatinine Ratio 28.3 High 8-20 Calcium 9.5 mg/dL N 8.6-10.3 Total Protein 7.3 g/dL N 6.4-8.9 Albumin 4.1 g/dL N 3.2-5.2 Globulin 3.2 g/dL N 2-4 Albumin/Globulin Ratio 1.3 N 1-3 Total Bilirubin 0.70 mg/dL N 0.2-1.0 Alkaline Phosphatase 117 U/L High 34-104 Alt 33 U/L N 7-52 Ast 19 U/L N 13-39 Egfr Non- 105.8 >60 Egfr 128.0 >60 3 CBC Auto Diff 05/01/2018 [facility] White Blood 10.7 10^3/uL N 3.5-10.[address] [place] [address] [phone] Red Blood Count 5.43 10^6/uL High 4.00-5.40 Hemoglobin 14.8 g/dL N 12.0-16.0 Hematocrit 44 % N 35-47 Mean Corpuscular Volume 80 fL N 80-97 Mean Corpuscular Hemoglobin 27 pg N 27-31 Mean Corpuscular HGB Conc 34 g/dL N 31-36 Red Cell Distribution Width 15 % N 10.5-15 Platelet Count 329 10^3/uL N 150-450 Mean Platelet Volume 8.2 um3 N 7.4-10.4 Abs Neutrophils 6.9 10^3/uL N 1.5-7.7 Abs Lymphocytes 2.7 10^3/uL N 1.0-4.8 Abs Monocytes 0.6 10^3/uL N 0-0.8 Abs Eosinophils 0.4 10^3/uL N 0-0.6 Abs Basophils 0 10^3/uL N 0-0.2 Abs Nucleated RBC 0 10^3/uL Granulocyte % 64.7 % N 38-83 Lymphocyte % 25.3 % N 25-47 Monocyte % 5.8 % N 0-7 Eosinophil % 4.0 % N 0-6 Basophil % 0.2 % N 0-2 Nucleated Red Blood Cells % 0.1 Laboratory 05/01/2018 [facility] Hemoglobin 5.6 % N 4.0-5.6 4 test finding [address] A1c ([place] [address] HGB) [phone] HIV 1/2 AB 05/01/2018 [facility] HIV 1 2 Nonreactive Nonreactive [address] [place] [address] [phone] Laboratory 05/01/2018 [facility] Hepatitis C Nonreactive Nonreactive test finding [address] [place] [address] [phone] Ua Routine 03/21/2018 [facility] Inserter In House Ua Specific 1.020 [place] Ua PH 5 Ua Color Dark Yellow Ua Appera Cloudy Ua WBC Negative Ua Protein Trace Ua Glucose Normal Ua Ketones Negative Ua Bilirubin Negative Ua Urobilinogen Normal Ua Nitrite Negative Ua Occult Blood Trace Inr/Protime 04/20/2016 [facility] Inr 0.90 N 0.89-1.[address] [place], [place] [id number] [phone] Laboratory test 04/20/2016 [facility] Partial 28.2 seconds N 26.0-36.[address] [place] [address] PTT [phone] CBC Auto Diff 04/20/2016 [facility] White Blood 9.0 10^3/uL N 3.5-10.[address] [place] [address] [phone] Red Blood Count 5.70 10^6/uL High 4.0-5.4 Hemoglobin 15.3 g/dL N 12.0-16.0 Hematocrit 46 % N 35-47 Mean Corpuscular Volume 81 fL N 80-97 Mean Corpuscular Hemoglobin 27 pg N 27-31 Mean Corpuscular HGB Conc 33 g/dL N 31-36 Red Cell Distribution Width 19 % High 10.5-15 Platelet Count 277 10^3/uL N 150-450 Mean Platelet Volume 8 um3 N 7.4-10.4 Abs Neutrophils 5.5 10^3/uL N 1.5-7.7 Abs Lymphocytes 2.5 10^3/uL N 1.0-4.8 Abs Monocytes 0.7 10^3/uL N 0-0.8 Abs Eosinophils 0.2 10^3/uL N 0-0.6 Abs Basophils 0.1 10^3/uL N 0-0.2 Abs Nucleated RBC 0 10^3/uL N Granulocyte % 61.3 % N 38-83 Lymphocyte % 27.8 % N 25-47 Monocyte % 7.3 % N 1-9 Eosinophil % 2.7 % N 0-6 Basophil % 0.9 % N 0-2 Nucleated Red Blood Cells % 0 N Basic Metabolic Panel 04/20/2016 [facility] Sodium 134 mmol/L N 133-[address] [place] [address] [phone] Potassium 4.1 mmol/L N 3.5-5.0 Chloride 104 mmol/L N 101-111 Co2 Carbon Dioxide 22 mmol/L N 22-32 Anion Gap 8 mmol/L N 2-11 Glucose 103 mg/dL High 70-100 Blood Urea Nitrogen 14 mg/dL N 6-24 Creatinine 0.63 mg/dL N 0.51-0.95 BUN/Creatinine Ratio 22.2 High 8-20 Calcium 8.7 mg/dL N 8.6-10.3 Egfr Non- 100.9 N >60 Egfr 129.7 N >60 6 Laboratory test 04/20/2016 [facility] HCG 0.64 mIU/mL N [address] [place] [address] [phone] 1 SEE RESULT BELOW Name: KAIT BURNETT: [address]: Bandar Pichardo MD Acct: [id number] Unit: [id number] AGE: 52 Location: [facility] Re06/21/18 SEX: F Status: REG REF SPEC: [id number] YURIY: 06/21/[address]: Bandar Pichardo MD REQ: [id number] RECD: 06/21/18 STATUS: SOUT _ ORDERED: TP IMAGE ANALYS, HOSPICE MASSAGE THERAPIST PHYS INTERP, HPV/Thin Prep COMMENTS: [id number] EPITHELIAL CELL ABNORMALITIES Low grade squamous intraepithelial lesion (LSIL) Date Time Test Result Flag (u) Normal Range 06/21/18 1408 @ HPV RNA Negative Negative @ @ The high-risk HPV types detected by the assay include: 16, @ 18, 31, 33, 35, 39, 45, 51, 52, 56, 58, 59, 66, and 68. A. Ectocervical/Endocervical Specimen Adequacy: Satisfactory of evaluation Transformation zone component not identified Patient Information: HPV: High risk HPV RNA testing regardless of pap results. Actual Specimen Date: 06/21/18 ?: N Post Menopausal?: N Hysterectomy?: N Signed by and Reported on: Ilan Traylor MD 0658 This Pap test was evaluated with the assistance of the [employer] In-Home MediaPrep Test Imaging System. Due to cytologic findings at the bar staff microscope, comprehensive manual rescreening by a Senior Tax Manager may be required. The Pap Smear is a screening test designed to aid in the detection of premalignant and malignant conditions of the uterine cervix. It is not a diagnostic procedure and should not be used as the sole means of detecting cervical cancer. Both false- positive and false- negative reports do occur. Depending on your risk status, a Pap smear should be obtained and evaluated every 1-3 years. END OF REPORT DEPARTMENT OF PATHOLOGY, [address] [place] [address] Ilan Traylor M.D. Director [facility] # [id number] 2 Normal Range 180 to 914 Indeterminate Range 145 to 180 Deficient Range <145 3 Because ethnic data is not always readily available, this report includes an eGFR for both -Americans and non- Americans. The National Kidney Disease Education Program (NKDEP) does not endorse the use of the MDRD equation for patients that are not between the ages of 18 and 70, are , have extremes of body size, muscle mass, or nutritional status, or are non- or non-. According to the National Kidney Foundation, irrespective of diagnosis, the stage of the disease is based on the level of kidney function: Stage Description GFR(mL/min/1.73 m(2)) 1 Kidney damage with normal or decreased GFR 90 2 Kidney damage with mild decrease in GFR 60-89 3 Moderate decrease in GFR 30-59 4 Severe decrease in GFR 15-29 5 Kidney failure <15 (or dialysis) 4 Therapeutic target for the treatment of diabetes mellitus patients is <7% HBA1C, and in selective patients <6.0%. Please refer to [place] Diabetes Association diabetic care guidelines for further information. 5 It is recognized that currently available assays for the detection of antibodies to HIV-1 and/or HIV-2 may not detect all infected individuals. HIV antibodies may be undetectable in some stages of the infection and in some clinical conditions. The performance of this assay has not been established for populations of infants or children. Assayed by Chemiluminescence Microparticle Immunoassay on the Siemens Advia Centaur CP. Values obtained with different methods or kits cannot be used interchangeably.The diagnostic specificity of the ADVIA Centaur 1/O/2 Enhanced assay in the low risk population was 99.90% (6052/6058) with a 95% confidence interval of 99.78 to 99.96%. 6 Because ethnic data is not always readily available, this report includes an eGFR for both -Americans and non- Americans. The National Kidney Disease Education Program (NKDEP) does not endorse the use of the MDRD equation for patients that are not between the ages of 18 and 70, are , have extremes of body size, muscle mass, or nutritional status, or are non- or non-. According to the National Kidney Foundation, irrespective of diagnosis, the stage of the disease is based on the level of kidney function: Stage Description GFR(mL/min/1.73 m(2)) 1 Kidney damage with normal or decreased GFR 90 2 Kidney damage with mild decrease in GFR 60-89 3 Moderate decrease in GFR 30-59 4 Severe decrease in GFR 15-29 5 Kidney failure <15 (or dialysis) 7 <5.0 Negative 5.0 - 25.0 Indeterminate (Repeat testing recommended after 72 hours) >25.0 Positive Perimenopausal women can display HCG levels of up to 20 mIU/mL Procedures Date Code Description Status 09/18/2017 75176 Diffusing Capacity Completed 09/18/2017 82667 Plethysmography Determination Lung Volumes & Per Airway Completed Resist 09/18/2017 50758 Pulmonary Function><Bronchodil Completed 02/07/2017 87914 EKG, Interpretation Only Completed 04/20/2016 42410 Vascular Embolization Or Occlu Tumor Organ Ischemia Or Completed Infarction 04/20/2016 82397 Catheter Placement Arterial System Init 3RD Order Completed Abdom/Pelv/Low Encounters Type Date Location Provider Dx Diagnosis Office Visit 06/26/2018 Damon Parry J45.909 Unspecified asthma, 4:00p Sage Avery M.D. uncomplicated Medicine-Rickywo od M54.2 Cervicalgia M54.5 Low back pain N39.3 Stress incontinence (female) (male) Office Visit 06/21/2018 1[facility] Z01.411 Encntr for front sight attacher [facility] MD exam (general) (routine) w abnormal findings Z12.31 Encntr screen mammogram for malignant neoplasm of breast R87.612 Low grade intrepith lesion cyto smr crvx (LGSIL) E03.9 Hypothyroidism, unspecified Z11.51 Encounter for screening for human papillomavirus (HPV) Z68.41 Body mass index (BMI) 40.0-44.9, adult Office Visit 04/19/2018 2:00p [facility] Sage North G56.03 Carpal tunnel Yanet Alves M.D.,FACP syndrome, [address] bilateral upper limbs E03.9 Hypothyroidism, unspecified E86.0 Dehydration G60.8 Other hereditary and idiopathic neuropathies Z23 Encounter for immunization Office Visit 03/21/2018 Damon [facility] Sage Parry J06.9 Acute upper 2:20p Medicine-Db Avery M.D. respiratory infection, unspecified R11.2 Nausea with vomiting, unspecified F33.1 Major depressive disorder, recurrent, moderate R35.0 Frequency of micturition E03.9 Hypothyroidism, unspecified Z12.11 Encounter for screening for malignant neoplasm of colon Office Visit 11/16/2016 Janusz Schafer N80.0 Endometriosis of 1:30p [facility] Egan M.D. uterus Office Visit 04/21/2016 [facility] D25.9 Leiomyoma of 10:25a Assoc,[facility] [place] uterus, unspecified Hospitalists [place], [place] N92.4 Excessive bleeding in the premenopausal period F41.8 Other specified anxiety disorders F98.8 Oth behav/emotn disord w onset usly occur in chldhd and adol Office Visit 04/20/2016 10:24a [facility] Elke D25.9 Leiomyoma of Assoc,monty Oliveira D.O. uterus, Hospitalists unspecified N92.4 Excessive bleeding in the premenopausal period F41.8 Other specified anxiety disorders F98.8 Oth behav/emotn disord w onset usly occur in chldhd and adol Office Visit 03/24/2016 1:30p [facility] Javi Schafer D25.9 Leiomyoma of [facility] Darion Egan uterus, unspecified Plan of Treatment Future Appointment(s):01/30/2019 10:15 am - Amelie Retana MD at [facility] Omyptqtffft99/19/2019 - César Avery M.D.E03.9 Hypothyroidism, unspecifiedNew Labs:Free T4 (Free Thyroxine), Ordered: 12/26/18TSH (Thyroid Stim Horm), Ordered: 12/26/18E78.00 Pure hypercholesterolemia, unspecifiedNew Labs:Lipid Profile (Trig/Chol/HDL), Ordered: 12/26/18Z13.1 Encounter for screening for diabetes mellitusNew Labs:Basic Metabolic Panel, Ordered: 12/26/18
[2019-01-17 16:19] VITALS: BP 142/84
--- NOTE | 2019-01-17 16:40 | UC ---
Throat Pain/Nasal Sean HPI - HPI Summary HPI Summary: 53 year old female presents with CC of sinus pressure, pain, post nasal drip, sore throat, irritating cough productive with green sputum x 1 week, no improvement. Did take left over ABX x 3 days, some improvement but s/s returned. Sinus pressure/ SORIANO worsening over week. - History of Current Complaint Chief Complaint: UCRespiratory Stated Complaint: SINUS CONGESTION Time Seen by Provider: 01/17/19 16:29 Hx Obtained From: Patient Hx Last Menstrual Period: 03/03/28 ?: No Onset/Duration: Sudden Onset, Lasting Days Severity: Mild Pain Intensity: 3 Pain Scale Used: 0-10 Numeric Cough: Productive Associated Signs & Symptoms: Positive: Sinus Discomfort, Fever - tactile Related History: Seasonal Allergies - Allergies/Home Medications Allergies/Adverse Reactions: Allergies Allergy/AdvReac Type Severity Reaction Status Date / Time No Known Allergies Allergy Verified 01/17/19 16:19 Home Medications: Home Medications Levothyroxine TAB* [Synthroid TAB*] 75 mcg PO 0800 01/17/19 [History Confirmed 01/17/19] Loratadine 10 mg PO DAILY 01/17/19 [History Confirmed 01/17/19] Vitamin E 100 unit PO DAILY 01/17/19 [History Confirmed 01/17/19] PMH/Surg Hx/FS Hx/Imm Hx Previously Healthy: Yes - h/o sinus infection ~ 2 yrs ago Other History Of: Negative For: Anticoagulant Therapy - Surgical History Surgical History: None Surgery Procedure, Year, and Place: d+c jul,cauterization september, d+c february ( polyps) bx benign. 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 Substance Use Type: None Substance Use Comment - Amount & Last Used: ativan Smoking Status (MU): Never Smoked Tobacco - Immunization History Most Recent Influenza Vaccination: 2016 Most Recent Tetanus Shot: unsure Most Recent Pneumonia Vaccination: never Review of Systems All Other Systems Reviewed And Are Negative: Yes Constitutional: Positive: Fever, Chills ENT: Positive: Sore Throat, Nasal Discharge, Sinus Congestion, Sinus Pain/ Tenderness Respiratory: Positive: Cough Is Patient Immunocompromised?: No Physical Exam Triage Information Reviewed: Yes Appearance: Well-Appearing, No Pain Distress, Well-Nourished Vital Signs: Initial Vital Signs Temp 98.6 F 01/17/19 16:17 Pulse 97 01/17/19 16:17 Resp 18 01/17/19 16:17 BP 142/84 01/17/19 16:17 Pulse Ox 98 01/17/19 16:17 Vital Signs Reviewed: Yes Eyes: Positive: Conjunctiva Clear ENT: Positive: Hearing grossly normal, Pharynx normal, TMs normal, Sinus tenderness - frontal, max b/l. Negative: TM bulging, TM dull, TM red, Tonsillar swelling, Tonsillar exudate, Uvula midline Neck: Positive: Supple, Nontender, No Lymphadenopathy. Negative: Nuchal Rigidity, Enlarged Nodes @ Respiratory: Positive: Chest non-tender, Normal breath sounds, No respiratory distress, No accessory muscle use, Wheezing - b/l LLs. Negative: Respiratory distress Cardiovascular: Positive: RRR, No Murmur Neurological Exam: Normal Psychological Exam: Normal Throat Pain/Nasal Course/Dx - Course Course Of Treatment: tx for sinusitis based on clinicla symptoms, follow up with PCP if symptoms continue, for elevated BP. ABx given, OTCs for symptoms. - Differential Dx/Diagnosis Differential Diagnosis/HQI/PQRI: Pharyngitis, Sinusitis Provider Diagnosis: Sinusitis Discharge - Sign-Out/Discharge Documenting (check all that apply): Patient Departure All imaging exams completed and their final reports reviewed: No Studies - Discharge Plan Condition: Good Disposition: HOME Prescriptions: Azithromyxin CHANDANA (NF) [Z-Chandana (Zithromax) 250 mg tabs #6] 2 tab PO .TODAY, THEN 1 DAILY #6 tab Patient Education Materials: Sinusitis (ED) Referrals: César Avery MD [Primary Care Provider] - Additional Instructions: - Increase fluid intake - Antibiotics as directed - Follow up with primary care physician within 1-2 weeks for repeat evaluation and for elevated blood pressure today - Tylenol/ motrin as needed for pain, fever - Return with fever > 102, neck pain, headache not resolved by Tylenol/ Motrin - Billing Disposition and Condition Condition: GOOD Disposition: Home
== END 2019-01-17 16:45 | disposition home or self-care (01) ==
LOC: UCEAST 15:50
DX: J32.9 Chronic sinusitis, unspecified (principal)
CPT/HCPCS: 99212; G0463